=== PATIENT | male | born 1960 | race Caucasian/White ===

== ENCOUNTER → 2020-03-01 | Outpatient (CLI) | payer BC ==
[~2020-03-01] MED LIST: DOBUTamine DRIP for NUC MED 500 MG in DEXTROSE/WATER 1 250ML.BAG IV ONE
--- NOTE | 2020-03-01 14:17 | ECHOS ---
STRESS ECHOCARDIOGRAM LUMASON: Vial INDICATIONS: Chest pain. MEDICATIONS: BASELINE HEART RATE: 85 BASELINE BLOOD PRESSURE: 189/75 MAXIMUM HEART RATE: 141 MAXIMUM BLOOD PRESSURE: 189/75 85% MPHR: 139 100% MPHR: 163 METS: MAXIMUM STAGE REACHED: TOTAL EXERCISE TIME: 10:25 CLINICAL INFORMATION: Baseline EKG shows sinus rhythm with frequent PVCs. Patient was given intravenous dobutamine over a period of 10.5 minutes as per protocol, achieving 87% of predicted maximal heart rate without chest pain or diagnostic ST-segment depression. Baseline echo shows normal left ventricular size, wall motion and systolic function. Post dobutamine infusion, there is normal hyperdynamic response of all segments of myocardium noted. Endocardial visualization was enhanced by using a contrast agent. CONCLUSION: 1. Negative stress test by EKG criteria. 2. Negative dobutamine echo. 3. Frequent PVCs at baseline. MMPEYTON / RUTHYN: [id number] /
== END | disposition home or self-care (01) ==
LOC: RADNMMAIN 09:13
PROVIDERS: ATTEND Family Medicine
DX: R07.9 Chest pain, unspecified (principal)
CPT/HCPCS: 93351; J1250; Q9950

== ENCOUNTER → 2021-06-02 | Outpatient (CLI) | payer BC ==
--- NOTE | 2021-06-02 10:17 | US ---
EXAMINATION TYPE: US prostate transrectal DATE OF EXAM: 06/02/2021 COMPARISON: NONE CLINICAL HISTORY: R97.20 Elevated PSA. elevated PSA. intermittent nocturia This examination was performed using the transrectal probe. EXAM MEASUREMENTS: Gland Size: 6.4 x 2.8 x 4.3cm Volume: 40.5ml Predicted PSA: 4.86 Actual PSA (if available): not available heterogeneous peripheral zone with no distinct nodule visualized at this time IMPRESSION: Glandular enlargement. Peripheral zone heterogeneity without distinct nodule. Correlate with actual PSA. Predicted PSA = volume x 0.12 ng/ml Calculated Volume = 0.5236 x L x W x H
== END | disposition home or self-care (01) ==
LOC: RADUSWWP 09:08
PROVIDERS: ATTEND Family Medicine
DX: R97.20 Elevated prostate specific antigen [PSA] (principal); R59.9 Enlarged lymph nodes, unspecified
CPT/HCPCS: 76872

== ENCOUNTER → 2023-04-10 | Outpatient (CLI) | payer BC ==
--- NOTE | 2023-04-11 10:11 | MR ---
EXAMINATION TYPE: MR Prostate wo/w con DATE OF EXAM: 04/10/2023 9:34 AM COMPARISON: 06/02/2021 CLINICAL INDICATION:Male, 62 years old with history of R97.20 elevated psa. TECHNIQUE: Multi-planar, multi-sequence imaging of the pelvis is performed prior to and following the uncomplicated administration of bolus intravenous gadolinium. CONTRAST: 14 cc Gadavist Interpretive Criteria: PI-RADS v2.1 SERUM PSA: 5.95 on 03/13/2023 SURGICAL PATHOLOGY: No data available. FINDINGS: Prostatic dimensions: 4.6 x 5.5 x 3.8 cm. Ellipsoid Volume: 50.34 (PSA density=0.12 ng/mL/mL) CENTRAL GLAND (Central and Transition Zones/CZ+TZ): Multiple bilateral, heterogenous appearing hypertrophic stromal nodules, without suspicious lesion. M edian lobe hypertrophy with protrusion into the base of the bladder. (PI-RADS 2) PERIPHERAL ZONE (PZ): Bilateral linear, indistinct wedgelike areas of low ADC, and low T2 signal, No evidence of masslike a bnormality, or localized perfusional hypervascularity, to further suggest a focus of clinically signi ficant prostate cancer. (PI-RADS 2) SEMINAL VESICLES (SV): Symmetric and unremarkable. PERIPROSTATIC TISSUES: Unremarkable. LYMPH NODES: No enlarged pelvic lymph node. REMAINING PELVIS: Bladder wall is within normal limits given distention. No abnormal free or organized intrapelvic fluid collection. No pathologic bowel dilation or mural thickening. No hernia visualized OSSEOUS STRUCTURES: No suspicious osseous abnormality. IMPRESSION: 1. No specific features for high-risk prostate cancer. Maximum PI-RADS score: 2. 2. Moderate BPH, estimated gland volume 50.34 mL.
== END | disposition home or self-care (01) ==
LOC: RADMRIMAIN 08:17
PROVIDERS: ATTEND Urology
DX: N40.0 Benign prostatic hyperplasia without lower urinary tract symptoms (principal); R97.20 Elevated prostate specific antigen [PSA]
CPT/HCPCS: 72197; A9585

== ENCOUNTER 2023-10-16 08:59 | Day surgery (SDC) | payer BC ==
[2023-10-15 09:14] VITALS: BMI 40.4
--- NOTE | 2023-10-15 10:30 | P.HPOR ---
History of Present Illness H&P Date: 10/15/23 Subjective: This is a 63 year old male that presents today for initial evaluation regarding a one year history of progressively worsening right hand numbness and tingling associated with weakness. He has a history of a right carpal tunnel release performed approximately [address] Ni. He states he had approximately eight years of symptom relief but over the last year to year and a half his symptoms have returned and have been progressively worsening. He also has a history of scaphoid injury over 20 years ago that was treated operatively but states it never healed and he has had intermittent pain and swelling in the wrist since but it is not stopping him from doing most activities. Physical Examination: RUE: AIN/PIN/Radial/Ulnar/Median motor intact. Radial/Ulnar/Median SILT. 2+/4 Radial/Ulnar pulses palpated. 5/5 APB, 5/5 FDI. Negative Finkelsteins, negative CMC grind, positive Durkan's compression. Wrist F/E 45/45. Imaging: X-Rays of the right hand 3V taken in office today demonstrate severe SLAC wrist arthritis with destruction of the radioscaphoid articulation. Impression: 1.) Right Recurrent carpal tunnel syndrome 2.) Right SLAC wrist arthritis Plan: Diagnosis and treatment options were discussed with the patient. We discussed the severity of his SLAC wrist arthritis and he wishes to avoid any salvage procedures at the moment for his arthritis but wishes to pursue a revision open right carpal tunnel release. Risks and benefits of surgery including bleeding, infection, damage to surrounding tissue, need for further surgery, residual numbness were discussed and the patient wished to go forward with surgery. The patient was agreeable with this plan. CC: Daniel Whitt MD -Elijah Lauren DO Orthopedic Hand/Upper Extremity Surgeon Past Medical History Past Medical History: Hearing Disorder / Deafness, Hypertension, Osteoarthritis (OA), Sleep Apnea/CPAP/BIPAP Additional Past Medical History / Comment(s): Hard of hearing. Seasonal allergies. No CPAP use. Varicose veins. Carpal tunnel, back problems. History of Any Multi-Drug Resistant Organisms: None Reported Past Surgical History: Appendectomy, Back Surgery, Bowel Resection, Orthopedic Surgery, Tonsillectomy Additional Past Surgical History / Comment(s): Right knee replacement, left wrist surgery. Past Anesthesia/Blood Transfusion Reactions: No Reported Reaction Past Psychological History: Depression Smoking Status: Never smoker Past Alcohol Use History: Daily Additional Past Alcohol Use History / Comment(s): 2 drinks daily. Past Drug Use History: None Reported - Past Family History Mother Family Medical History: Blood Disorder, Osteoarthritis (OA) Father Family Medical History: Congestive Heart Failure (CHF) Medications and Allergies Home Medications Medication Instructions Recorded Confirmed Type Baclofen 10 mg PO HS 10/15/23 10/15/23 History Celecoxib [CeleBREX] 200 mg PO DAILY 10/15/23 10/15/23 History Fish Oil (Unknown Dose) 1 tab PO DAILY 10/15/23 10/15/23 History Losartan/Hydrochlorothiazide 1 tab PO DAILY 10/15/23 10/15/23 History [Losartan-Hctz 100-25 mg Tab] Multivitamins, Thera [Multivitamin 1 tab PO DAILY 10/15/23 10/15/23 History (formulary)] Vitamin B-12 (Unknown Dose) 1 tab PO DAILY 10/15/23 10/15/23 History Vitamin C (Unknown Dose) 1 tab PO DAILY 10/15/23 10/15/23 History Allergies Allergy/AdvReac Type Severity Reaction Status Date / Time No Known Allergies Allergy Verified 10/15/23 08:27 Physical Examination Osteopathic Statement: *. No significant issues noted on an osteopathic structural exam other than those noted in the History and Physical/Consult.
[~2023-10-16 08:59] MED LIST changes: -DOBUTamine DRIP for NUC MED 500 MG in DEXTROSE/WATER 1 250ML.BAG IV ONE; +HYDROmorphone 0.5 MG/0.5 ML SYRINGE IVP PRN; +LIDOCAINE 1% (10MG/ML) FOR IV START INTRADERMA PRN; +MIDAZOLAM 2 MG/2 ML VIAL IV PRN; +Pre Op ABX Message 1 EACH MISC MISCELLANE ONE
[2023-10-16] MEDS ORDERED: ONDANSETRON 4 MG/2 ML VIAL ONE (09:35)
[2023-10-16] MEDS: LACTATED RINGERS 1,000 ML IV SCH (09:40)
[2023-10-16] MEDS: ONDANSETRON 4 MG/2 ML VIAL IVP ONE (09:40)
[2023-10-16] MEDS: DEXAMETHASONE SOD PHOSPHATE 4 MG/ML 1 ML VIAL IV ONE (09:40)
[2023-10-16 09:55] VITALS: RESP 16; TEMP 97
[2023-10-16] MEDS ORDERED: PROPOFOL 10 MG/ML 20 ML VIAL IV ONE (10:04)
[2023-10-16] MEDS ORDERED: MIDAZOLAM 2 MG/2 ML VIAL ONE (10:04)
[2023-10-16] MEDS ORDERED: fentaNYL (PF) 50 MCG/ML 2 ML AMP ONE (10:04)
[2023-10-16] MEDS ORDERED: KETAMINE HCL IN 0.9 % NACL 50 MG/5 ML SYRINGE ONE (10:04)
[2023-10-16] MEDS: LIDOCAINE 2% INJ 20 MG/ML SQ ONE (10:10)
[2023-10-16] MEDS: BUPIVACAINE (PF) 0.5% 30 ML VIAL SQ ONE (10:10)
--- NOTE | 2023-10-16 11:36 | P.OP ---
Date of Procedure: 10/16/23 Preoperative Diagnosis: Right recurrent carpal tunnel syndrome Postoperative Diagnosis: Right recurrent carpal tunnel syndrome Procedure(s) Performed: Right revision open carpal tunnel release- Modifier 22 Anesthesia: MAC Surgeon: Elijah Lauren Supervisor Graphite #1: Gurdeep Rooney Estimated Blood Loss (ml): 0 Pathology: none sent Condition: stable Disposition: PACU Description of Procedure: This is a 63 year old male who presents today for a revision right open carpal tunnel release after having failed conservative treatment in the past and after undergoing a previous open carpal tunnel release. Risks and benefits of surgery were discussed with the patient including bleeding, damage to surrounding tissue, infection, need for further surgery as well as risks of anesthesia including pulmonary embolism and even and the patient wished to proceed with surgical intervention. The patients was seen in the pre-operative area by myself. Consent and H&P were completed and updated. The correct extremity was marked in the pre-operative area by myself and all other questions were answered. Operative Narrative: The patient was brought to the operating room by the department of anesthesia. They remained on the portable stretcher and a rolling hand table was brought to the side of the operative extremity. Pre-operative time out was performed indicating the correct patient, procedure and laterality. All in the room agreed. The patient was then drifted off to sleep by the department of anesthesia. MAC anesthesia was utilized and a 50:50 mixture of 1% Lidocaine and 0.5% bupivacaine was injected into the subcutaneous tissues of the palmar skin, 8ccs total. A nonsterile tourniquet was then applied to the operative extremity and the right upper extremity was then prepped and draped in normal sterile fashion. The operative extremity was the exsanguinated with an esmarch bandage and the tourniquet was inflated to 250mmHg. 15 blade scalpel was utilized to make a longitudinal incision on the palmar skin in line with the radial boarder of the ring finger to a point distally at the intersection of Kaplans cardinal line through the site of her previous incisions. In the subcutaneous tissues a retained nylon suture was identified and removed. Heiss retractor was utilized to spread subcutaneous tissue and scalpel was used to cut through the superficial palmar fascia to reveal the transverse carpal ligament. The transverse carpal ligament was then sharply incised in line with the incision and tenotomy scissors were used to spread distally and the distal portion of the transverse carpal ligament was released using tenotomy scissors from distal to proximal under direct visualization. The ligament was very thick due to abundant scar tissue. The median nerve was directly visualized and was intact and bluntly released from adhesions to the undersurface of the transverse carpal ligament under direct visualization. Proximal fascia of the distal forearm was also released under direct visualization taking care to preserve the palmar cutaneous branch of the median nerve. The wound was then closed with 4-0 nylon suture in a horizontal mattress fashion. Sterile dressing was applied consisting of adaptic, 4x4s, webril, and an nam bandage. Tourniquet was let down and the hand immediately was well perfused. The patient was then woken by the department of anesthesia and transferred to PACU in stable condition. Gurdeep HENDERSON was present to assist in protection of neurovascular structures and manipulation of the hand. Modifier 22 is requested due to this being a revision of a revision open carpal tunnel rele ase that required careful extensive dissection and exploration around abundant scar tissue surrounding neurovascular structures and altered anatomy due to the patient previous procedure on the same hand for the same condition. lEijah Lauren D.O. Orthopedic Hand/Upper Extremity Surgeon
[2023-10-16 11:50] VITALS: BP 124/75; PULSE 59
== END 2023-10-16 11:24 | disposition home or self-care (01) ==
LOC: OR 08:59
PROVIDERS: ATTEND Orthopaedic Surgery Hand Surgery
DX: G56.01 Carpal tunnel syndrome, right upper limb (principal); G47.30 Sleep apnea, unspecified; I10 Essential (primary) hypertension; Z79.1 Long term (current) use of non-steroidal anti-inflammatories (NSAID); Z90.49 Acquired absence of other specified parts of digestive tract; Z96.651 Presence of right artificial knee joint; Z98.890 Other specified postprocedural states; Z79.899 Other long term (current) drug therapy
CPT/HCPCS: 64721; J2001; J2250; J1100; J2405; J3010; J2704; J0665